=== PATIENT | female | born 1950 | race Caucasian/White ===

== ENCOUNTER 2021-06-17 05:39 | Day surgery (SDC) | payer MEDICARE, OTHER ==
[~2021-06-17] VITALS: Ht 160 cm; Wt 97.0 kg
[2021-06-17] MEDS ORDERED: PROC10TA78 PO (06:28)
[2021-06-17] MEDS ORDERED: ATOR20TA37 PO (06:28)
[2021-06-17] MEDS ORDERED: POTA8CAP20 PO (06:28)
[2021-06-17] MEDS ORDERED: [UNRECOGNIZED DRUG - OTHER] TP (06:28)
[2021-06-17] MEDS ORDERED: fish oil PO (06:28)
[2021-06-17] MEDS ORDERED: FENO145T32 PO (06:28)
[2021-06-17] MEDS ORDERED: MULT-658 PO (06:28)
[2021-06-17] MEDS ORDERED: FURO20TA3 PO (06:28)
[2021-06-17] MEDS ORDERED: FLUO40CA9 PO (06:28)
[2021-06-17] MEDS ORDERED: STIOLTO RESPIMAT INH (06:28)
[2021-06-17] MEDS ORDERED: LINA145C PO (06:28)
[2021-06-17] MEDS ORDERED: INUL1TAB4 PO (06:28)
[2021-06-17] MEDS ORDERED: DOCU50LI11 PEG (06:28)
[2021-06-17] MEDS ORDERED: vit d2 PO (06:28)
[2021-06-17] MEDS ORDERED: LEVO75TA5 PO (06:28)
[2021-06-17] MEDS ORDERED: CEFAZOLIN PMX 1GM/50ML 50 ML IV ONE (06:30)
[2021-06-17] MEDS ORDERED: SODIUM CHLORIDE 0.9% 1,000 ML IV SCH (06:30)
[2021-06-17] MEDS ORDERED: PLEASE ENTER ALLERGIES MC SCH (07:00)
[2021-06-17] MEDS ORDERED: FENTANYL PF 100 MCG/2ML ONE (07:58)
[2021-06-17] MEDS ORDERED: MIDAZOLAM 1 MG/ML, 5ML ONE (07:58)
[2021-06-17] MEDS ORDERED: NALOXONE 1 MG/ML, 2ML ONE (07:58)
[2021-06-17] MEDS ORDERED: FLUMAZENIL 0.1 MG/1 ML, 5ML ONE (07:58)
[2021-06-17] MEDS ORDERED: LIDOCAINE 1%, 20ML ONE (08:18)
== END 2021-06-17 09:45 | disposition home or self-care (01) ==
LOC: OUT 05:39
PROVIDERS: ATTEND Internal Medicine
DX: C34.31 Malignant neoplasm of lower lobe, right bronchus or lung (principal); I27.20 Pulmonary hypertension, unspecified; J44.9 Chronic obstructive pulmonary disease, unspecified; E03.9 Hypothyroidism, unspecified; E11.22 Type 2 diabetes mellitus with diabetic chronic kidney disease; I13.0 Hypertensive heart and chronic kidney disease with heart failure and stage 1 through stage 4 chronic kidney disease, or unspecified chronic kidney disease; N18.30 Chronic kidney disease, stage 3 unspecified; I50.30 Unspecified diastolic (congestive) heart failure; Z79.890 Hormone replacement therapy; Z79.899 Other long term (current) drug therapy; Z87.891 Personal history of nicotine dependence; Z90.710 Acquired absence of both cervix and uterus; Z99.81 Dependence on supplemental oxygen; Z80.0 Family history of malignant neoplasm of digestive organs
CPT/HCPCS: 36561; 76937; 77001; 99156; 99157; C1788; J0690; J1642; J2250; J3010; J7030; J2310